=== PATIENT | female | born 1935 | race Caucasian/White ===

== ENCOUNTER 2017-09-04 17:16 | Inpatient (IN) | payer OTHER, SELFPAY ==
[2017-09-04] VITALS (9 sets, daily range): BP systolic 103–159; BP diastolic 52–74
[~2017-09-04] VITALS: Ht 162.6 cm; Wt 81.7 kg
--- NOTE | ~2017-09-04 | EKG ---
[address] [employer] [place] [address] ELECTROCARDIOGRAM REPORT Name: SEAN RANDALL Room #: 351- ADM IN M.R.#: [id number] Admission: 09/04/17 Attend Phys: Erick Kelly MD Discharge: Date of : 36 Report #: [id number] THIS REPORT FOR: //name// [facility] Test Date: 2017-09-08 Test Time: 22:22:02 Pat Name: SEAN RANDALL Department: Room: 351 Gender: F Cyanide Pot Tender: [id number] : 1935 Requested By: Xiomara Shin Order Number: [id number] MD: Parth Wilder Measurements Intervals [place] Rate: 146 P: 122 KS: 24 QRS: 51 QRSD: 89 T: 237 QT: 261 QTc: 407 Interpretive Statements Atrial fibrillation with a rapid ventricular response Diffuse ST and T wave abnormality Compared to ECG 09/04/2017 18:19:35 Atrial fibrillation has replaced sinus rhythm Electronically Signed On 09-10-2017 13:10:12 CDT by Parth Wilder [email or web address] <ELECTRONICALLY SIGNED> By: Parth Wilder MD, [facility] 09/10/17 1310 21 21 Parth Wilder MD, [facility] /EPI
--- NOTE | ~2017-09-04 | O ---
[facility] [place] [address] OPERATIVE REPORT Name: SEAN RANDALL Room #: 351- ADM IN M.R.#: [id number] Admission: 09/04/17 Attend Phys: Erikc Kelly MD Discharge: Date of : 36 Report #: [id number] THIS REPORT FOR: //name// CC: Ricardo Ray DATE OF SERVICE: 09/06/2017 PREOPERATIVE DIAGNOSES: 1. Ischemic left colon. 2. Obesity. 3. Coronary artery disease status post myocardial infarction and stenting. 4. Hypercholesterolemia. 5. Tobaccoism. POSTOPERATIVE DIAGNOSES: 1. Ischemic left colon. 2. Obesity. 3. Coronary artery disease status post myocardial infarction and stenting. 4. Hypercholesterolemia. 5. Tobaccoism. PROCEDURES PERFORMED: 1. Exploratory laparotomy. 2. Extensive lysis of adhesions. 3. Left hemicolectomy with low anterior resection and end mid-transverse colostomy in the left upper quadrant. 4. Placement of a topical wound VAC (Prevena) device. SURGEON: Ricardo Tapia M.D. GLASS BLOWING INSTRUCTOR: Kvng Braxton M.D. ANESTHESIA: General endotracheal anesthesia. ESTIMATED BLOOD LOSS: Minimal (less than 20 mL). COMPLICATIONS: None appreciated. SPECIMENS: Left colon to pathology with a suture marking distal. INDICATIONS: The patient is an 81-year-old obese female with a longstanding history of atherosclerotic disease including coronary artery disease status post prior PA with stenting as well as a greater than 50% JUAN MIGUEL stenosis that has failed intervention in the past. The patient has had multiple [facility] [address] [place] [address] OPERATIVE REPORT Name: SEAN RANDALL Room #: 351-P ADM IN M.R.#: [id number] Admission: 09/04/17 Attend Phys: Erick Kelly MD Discharge: Date of : 36 Report #: [id number] bouts of ischemic left colitis and most recently was admitted 2 days ago with severe sudden onset recurrent ischemic colitis where a flexible sigmoidoscopy showed overt necrotic mucosa from 20-50 cm of the left colon. Thankfully, the patient responded to aggressive fluid resuscitation and antibiotics and we were able to bowel prep the patient and proceed with the above-mentioned procedure today. There was questionable ischemia at the distal transection site, which was as low as we could feasibly go due to marked adhesions in the pelvis of the rectum to the posterior aspect of the uterus and as we did not have adequate tissue, we were unable to perform the low coloproctostomy anastomosis. DESCRIPTION OF PROCEDURE: After explaining the risks, benefits and alternatives of the procedure with the patient in detail in the preoperative holding area and obtaining written consent, the patient was brought to the operating room and placed supine on the operating room table. After conducting a thorough timeout procedure verifying correct patient and procedure, the patient was given general endotracheal anesthesia. Once adequate anesthesia was obtained, her SCDs were hooked up to pneumatic compression device. She was given a preoperative dose of antibiotics in line with the SCIP protocol. The patient's abdomen was prepped and draped in standard surgical sterile fashion. #10 bladed scalpel was used to create a longitudinal midline incision from subxyphoid location to the suprapubic location, carried to the right of the patient's umbilicus. Electrocautery was used to carry this down through skin and subcutaneous tissues to ensure hemostasis. Once I arrived upon the level of the fascia, this was scored longitudinally and a finger was placed in the abdomen to facilitate opening the fascia in a controlled setting without injury to the underlying structures from electrocautery burn. Once we had the entirety of the fascia opened, there was approximately 1 liter of reactive ascites that was slightly turbid in nature. This was suctioned out after obtaining culture swabs times 2 for microbiologic analysis. Once all the fluid had been evacuated, we turned our attention to dissection. The patient's left colon was thickened, hyperemic and obviously diseased. There were marked adhesions due to the multiple recurrent inflammatory processes. The patient was placed in Trendelenburg position with the left side elevated and we were able to sweep the small bowel into the upper abdomen. We now mobilized the left colon along the white line of Toldt using electrocautery to score the avascular plane. Care was taken to identify the left ureter, which was preserved and uninjured throughout. As we scored low in the pelvis, the rectum itself was thickened to approximately 3 cm inferior to the rectosigmoid juncture. A window was made through the mesorectum using blunt dissection and the contour stapler with a blue load was used to transect the rectum at this juncture. There were marked adhesions of the anterior aspect of the rectum to the posterior aspect of the uterus low in the pelvis and these were unable to be taken down as they were very firm and indurated due to the acute inflammatory process of the ischemic colitis. The colon itself was now elevated, and we took down the mesentery with the EnSeal X1 advanced energy device moving from the distal aspect proximally. We took down the splenic flexure to mobilize the entire left colon and identified the middle [facility] [address] [place] [address] OPERATIVE REPORT Name: SEAN RANDALL Room #: 351-P [facility] IN M.R.#: [id number] Admission: 09/04/17 Attend Phys: Erick Kelly MD Discharge: Date of : 36 Report #: [id number] colic artery. We went just to the patient's left side of the middle colic artery and made a window in the mesentery with electrocautery and transected the colon at this juncture with a blue load 75 mm linear stapler. This allowed us to remove the entire left colon and placed it on a Andrea stand on the back table where we proceeded to open the colon along the antimesenteric aspect with Metzenbaum scissors. This showed overt mucosal necrosis from approximately 3 cm distal to our proximal transection site all the way down to the distal transection site. There was one spot on the distal aspect that had a firm scar externally and frozen section was obtained from pathology intraoperatively showing no evidence of malignancy. As we had no healthy rectal stump at this juncture, we were unable to perform the low coloproctostomy anastomosis. We therefore selected an appropriate site for colostomy placement in the left upper quadrant. The skin was grasped with a Rajendra clamp and a skin defect was made with #10 bladed scalpel. We dissected with electrocautery down through fascia where a tonsil clamp was used to penetrate intraabdominally and the tract was dilated to 2 fingerbreadths. A Kinston clamp was placed through this tract and the staple line of the distal transverse colon was grasped and pulled through. Orientation was preserved to ensure no twisting. The abdomen was copiously irrigated and the irrigant ran clear throughout. We did place a 19-Zambian round Yeyo-Garza drain in the low pelvis emanating from the right lower abdomen where it was anchored to the skin using 2-0 nylon in standard fashion. The drain ran low in the pelvis and up the left pericolic gutter. We now closed the midline fascial wound using looped #1 PDS suture in standard running fashion using two separate sutures from inferior to superior and superior to inferior where the sutures were met. They were tied together at the midline. The skin wound was irrigated and skin was closed with saman. Prevena was then applied to the midline fascial wound. We then removed the staple line of the transverse colon and proceeded to mature the colostomy in standard Robyn fashion using 3-0 Vicryl at the 12, 3, 6, and 9 o'clock positions to imbricate the colon slightly. We then anchored the mucocutaneous junction and the remaining 4 quadrants using short runs of 3-0 Vicryl. Digital finger intubation of the colostomy showed it to be patent to a subfascial level. A sterile ostomy appliance was then applied. At the end of the procedure, all instrument, needle and sponge counts were correct. The patient tolerated the procedure without incident, was awakened in the operating room and transitioned to the recovery room in stable condition with no apparent complications. <ELECTRONICALLY SIGNED> By: Ricardo Tapia MD, FACS 09/10/17 0745 1051 1231 Ricardo Tapia MD, FACS /nt
--- NOTE | ~2017-09-04 | S ---
[facility] [place] [address] SURGICAL PATH RPT PROCEDURE Name: SEAN RANDALL Room #: 351-P ADM IN M.R.#: [id number] Admission: 09/04/17 Date of : 37 Discharge: Report #: [id number] Path Case #: [id number] PATHOLOGY REPORT COLLECTION DATE: 09/06/2017 RECEIVED DATE: 09/06/2017 SUBMITTING PHYS: Dr. Ricardo Tapia OTHER PHYS: Dr. Suman Kelly M.D. SPECIMEN(S) RECEIVED: A.L colon suture alexandra distal * * * * * * * * * * * * FINAL DIAGNOSIS: Large intestine, left colon suture alexandra distal, colectomy: - Ischemic colitis. - Margins of resection viable and unremarkable. - Negative for dysplasia or malignancy. (IUV:lukasz; 09/09/2017) PATHOLOGIST: Mary Laguna M.D. REPORT ELECTRONICALLY SIGNED BY: Mary Laguna M.D. DATE/TIME: 09/09/2017 14:48 * * * * * * * * * * * * GROSS PATHOLOGY: The specimen received fresh from the OR labeled "Sean Randall and left colon - suture alexandra distal". It consists of a previously opened segment of large bowel with attached yellow lobular pericolonic fatty tissue. The specimen measures 42 cm in length x 3.5 cm in average diameter. It was previously opened in the OR along the antimesenteric border revealing a mucosal surface that is coreas-brown and folded with numerous areas of dark discoloration and friable mucosa. The surgical margins appear free of changes. Approximately 3 cm from the distal resection margin is a small indurated area along the serosal surface corresponding to a slightly firm mucosa area. A technical support representative section of this area is submitted for one frozen section. The frozen section is then submitted as A1. The specimen is fixed in formalin. (CLW:kaylin; 09/09/2017) Received fresh for intraoperative consultation, and later placed in formalin, labeled "Sean Randall, left colon-suture alexandra distal" is an oriented segment of large bowel with an internal circumference that ranges from 3.8-7.5 cm. The serosa is pink-coreas and smooth with a [facility] [address] [place] [address] SURGICAL PATH RPT PROCEDURE Name: SEAN RANDALL Room #: [facility]- ADM IN M.R.#: [id number] Admission: 09/04/17 Date of : 37 Discharge: Report #: [id number] Path Case #: [id number] moderate amount of mesenteric fat present. Approximately 50% of the mucosal surface is patchy coreas-green and discolored, with prominent mucosal folding. This discolored area measures 32.5 cm in length and 3.2-6.5 cm in width. The discolored area measures up to the proximal margin and 3.0 cm to the distal margin. A slightly puckered area is identified near the distal aspect, which is contiguous with the discoloration, and measures 2.0 x 0.8 cm. The serosa deep to this area is inked blue, at the puckered area (this represents the section submitted for frozen section as FSA1). The uninvolved mucosa is pink-coreas with edematous folding. No polyps, diverticula, or masses are grossly identified. The muscle wall of the bowel ranges from 0.3-0.7 cm in width. No lymph nodes are grossly identified. Network Operations Center Engineer sections of the specimen are submitted as follows: A1 frozen section remnant A2 proximal margin A3 distal margin A4 additional sections of area surrounding section taken for frozen A5-A6 areas of coreas-green discoloration and adjacent uninvolved mucosa ([facility]; 09/08/2017) FROZEN SECTION DIAGNOSIS: (Claudette Payne M.D.): FSA1. "Left colon": - No invasive carcinoma seen at induration. The case was discussed with Dr. Tapia in the OR and a written report is placed in the patient's chart. Testing performed by [facility] at [facility] [address] [place] [address] CLINICAL HISTORY: Ischemic colitis. INITIAL CPT CODE(S): A; 12375, 00309 Professional services performed by [facility] at [facility] [address] [place] [address] Technical services performed by [facility] at [address] [place] [address], [address], [place] [address]. [facility] [address] [address] [place] [address] SURGICAL PATH RPT PROCEDURE Name: SEAN RANDALL Room #: 351-P ADM IN M.R.#: [id number] Admission: 09/04/17 Date of : 37 Discharge: Report #: [id number] Path Case #: [id number] PHONE: [phone] DIRECTOR: Gerardo Cordova M.D. * * * END OF REPORT * * *
--- NOTE | ~2017-09-04 | P ---
[facility] [place] [address] PROCEDURE REPORT Name: SEAN RANDALL Room #: [facility]-P [facility] IN M.R.#: [id number] Admission: 09/04/17 Attend Phys: Erick Kelly MD Discharge: Date of : 36 Report #: [id number] THIS REPORT FOR: //name// CC: Inpatient Chart Ricardo Ray MD DATE OF SERVICE: 09/05/2017 The following is a flexible sigmoidoscopy. She is a patient of Dr. Suman Ray and Dr. Kelly. INDICATION FOR PROCEDURE: The patient presented with abdominal pain followed by hematochezia. She has a history of ischemic colitis of the sigmoid colon. She is complaining of right lower quadrant pain primarily that may be sigmoid. Informed consent for this procedure was obtained prior to the administration of any medication. The risks of the procedure which include bleeding, perforation, infection, complications of sedation and the possibility I could miss something have been explained to the patient and her family and the patient has indicated her consent by signing. Propofol was slowly titrated before and during this procedure for patient comfort by the Anesthesia service. A digital rectal exam was performed and was normal. No abnormalities were palpated. Then, the Fujinon colonoscope was introduced through the anal sphincter and advanced very cautiously and slowly through the rectum, sigmoid colon, descending colon and splenic flexure into the transverse colon. Findings are noted on withdrawal of the scope. The transverse colonic mucosa appears normal as far as I can see. In the splenic flexure, we see the beginning of some mucosal ulcerations and erythema and edema. At 50 cm in the proximal descending colon, there is an abrupt change to severe black colored and littlejohn colored mucosa indicating severe ischemia of this area. There is a lot of edema and deep ulcerations throughout the colon, in the descending colon and the sigmoid colon and then this abruptly ends at 20 cm in the distal sigmoid colon. I suspect this is all severe ischemic colitis. The rectum appeared normal. I did not try to retroflex in the rectum because I did not want to put any type of pressure whatsoever on the sigmoid colon. The scope was withdrawn. The patient went to the recovery area in stable condition. She tolerated the procedure well. IMPRESSION: Severe ischemic colitis extending from 20 cm up to 50 cm in the [address] [address] PROCEDURE REPORT Name: SEAN RANDALL Room #: 246-P [facility] IN M.R.#: [id number] Admission: 09/04/17 Attend Phys: Erick Kelly MD Discharge: Date of : 36 Report #: [id number] proximal descending colon. The mucosa is black in color and littlejohn in color in other areas. Sometimes the mucosal lumen is black on 1 half side and the other side is a normal pink color consistent with ischemia. My recommendations were to continue the IV antibiotics, was started on clear liquids very cautiously. I think she needs to stay in the hospital, but not necessarily in the ICU. She will need to have further evaluation by surgery for possible resection of this ascitic colon as previous attempts at stenting her inferior mesenteric artery were unsuccessful. Thank you very much once again for allowing me to participate in her care, Dr. Ray and Dr. Kelly and Dr. Tapia. <ELECTRONICALLY SIGNED> By: Elvira Ambrocio DO 09/05/17 2109 1343 1912 Elvira Ambrocio DO /nt
--- NOTE | ~2017-09-04 | EKG ---
[address] [address] [facility] [place] [address] ELECTROCARDIOGRAM REPORT Name: SEAN RANDALL Room #: 246-P ADM IN M.R.#: [id number] Admission: 09/04/17 Attend Phys: Eugene Pinto MD Discharge: Date of : 36 Report #: [id number] THIS REPORT FOR: //name// [facility] ED Test Date: 2017-09-04 Test Time: 18:19:35 Pat Name: SEAN RANDALL Department: Room: 246 Gender: F Strickler Attendant: Rubio GONZALEZ : 1935 Requested By: Ricardo Ferrera Order Number: [id number] MD: Parth Wilder Measurements Intervals [place] Rate: 82 P: 73 [place]: 154 QRS: 62 QRSD: 99 T: 75 QT: 454 QTc: 531 Interpretive Statements Sinus rhythm Nonspecific ST segment abnormality Prolonged QT interval Compared to ECG 01/22/2010 09:39:13 Sinus bradycardia no longer present ST and T wave abnormality is less pronounced Electronically Signed On 09-05-2017 7:41:17 MASTER BLACK [employer]T by Parth Wilder [email or web address] <ELECTRONICALLY SIGNED> By: Parth Wilder MD, [facility] 09/05/17 0741 1819 1819 Parth Wilder MD, [facility] /EPI
--- NOTE | ~2017-09-04 | 2DMMODE ---
[facility] [address] [employer] [address] [address] 2 D/M-MODE ECHOCARDIOGRAM Name: SEAN RANDALL Room #: 351-P ADM IN M.R.#: [id number] Admission: 09/04/17 Attend Phys: Erick Kelly MD Discharge: Date of : 37 Date of Service: 09/06/17 0850 Report #: [id number] THIS REPORT FOR: //name// APPROVED REPORT Study performed: 09/06/2017 08:05:17 EXAM: Comprehensive 2D, Doppler, and color-flow Echocardiogram Patient Location: Bedside Room #: [facility] Status: routine BSA: 1.87 HR: 80 bpm BP: 146/54 mmHg Rhythm: NSR Other Information Study Quality: Adequate Indications Elevated troponin, Pre-Op. Hx: CAD, stents, HTN, HLP, tobacco abuse 2D Dimensions RVDd: 31.80 mm LVEF(%): 60.63 (>50%) IVSd: 11.23 (7-11mm) LVOT Diam: 21.67 (18-24mm) LVDd: 47.92 mm PWd: 11.31 (7-11mm) Ascending Ao: 35.91 (22-36mm) LVDs: 32.39 (25-40mm) Aortic Root: 36.00 mm Francisco's LVEF: 60.63 % Volumes Left Atrial Volume (Systole) Single Plane 4CH: 48.63 mL Single Plane 2CH: 46.90 mL LA ESV Index: 28.00 mL/m2 Aortic Valve AoV Peak Emir.: 1.75 m/s AO Peak Gr.: 12.18 mmHg LVOT Max P.01 mmHg LVOT Max V: 1.32 m/s SHARI Vmax: 2.80 cm2 Mitral Valve E/A Ratio: 0.9 [facility] [employer] [place] [address] 2 D/M-MODE ECHOCARDIOGRAM Name: SEAN RANDALL Room #: 351-P [facility] IN M.R.#: [id number] Admission: 09/04/17 Attend Phys: Erick Kelly MD Discharge: Date of : 36 Date of Service: 09/06/17 0850 Report #: [id number] MV Decel. Time: 140.73 ms MV E Max Emir.: 1.22 m/s MV A Emir.: 1.36 m/s MV PHT: 40.81 ms IVRT: 69.20 ms Pulmonary Valve PV Peak Emir.: 1.03 m/s PV Peak Gr.: 4.20 mmHg Pulmonary Vein P Vein S: 0.85 m/s P Vein A: 0.34 m/s P Vein D: 0.42 m/s P Vein S/D Ratio: 2.02 Tricuspid Valve TR Peak Emir.: 3.21 m/s RAP Estimate: 5.00 mmHg TR Peak Gr.: 41.17 mmHg PA Pressure: 46.00 mmHg Left Ventricle The left ventricle is normal size. There is normal LV segmental wall motion. There is normal left ventricular wall thickness. Left ventricular systolic function is normal. LVEF is 55%. Mild diastolic dysfunction is present (impaired relaxation pattern). Right Ventricle The right ventricle is normal size. The right ventricular systolic function is normal. Atria The left atrium size is normal. The right atrium size is normal. Aortic Valve The aortic valve is mildly sclerotic. No aortic regurgitation is present. There is no aortic valvular stenosis. Mitral Valve Mild mitral annular calcification. Trace mitral regurgitation. Tricuspid Valve The tricuspid valve is normal in structure. Mild tricuspid regurgitation. Moderate pulmonary hypertension with an estimated PAP of 45mmHg. [address] [address] 2 D/M-MODE ECHOCARDIOGRAM Name: SEAN RANDALL Room #: 351-P [facility] IN M.R.#: [id number] Admission: 09/04/17 Attend Phys: Erick Kelly MD Discharge: Date of : 37 Date of Service: 09/06/17 0850 Report #: [id number] Pulmonic Valve Pulmonic valve is not well visualized. Great Vessels The aortic root is normal in size. The ascending aorta is normal in size. IVC is normal in size and collapses >50% with inspiration. Pericardium There is no pericardial effusion. <Conclusion> Left ventricular systolic function is normal. There is normal LV segmental wall motion. LVEF is 55%. Grade I diastolic dysfunction The aortic valve is mildly sclerotic. No aortic regurgitation or stenosis Mild mitral annular calcification. Trace mitral regurgitation. Moderate pulmonary hypertension with an estimated pulmonary artery pressure of 45mmHg. There is no pericardial effusion. <ELECTRONICALLY SIGNED> By: Parth Wilder MD, FACC 09/06/1750 9 Parth Wilder MD, FACC /INF
--- NOTE | ~2017-09-04 | EKG ---
[address] [address] ELECTROCARDIOGRAM REPORT Name: SEAN ARNDALL Room #: 351- ADM IN M.R.#: [id number] Admission: 09/04/17 Attend Phys: Erick Kelly MD Discharge: Date of : 37 Report #: [id number] THIS REPORT FOR: //name// [facility] Test Date: 2017-09-08 Test Time: 22:40:24 Pat Name: SEAN RANDALL Department: Room: 351 Gender: F Concrete Boom Operator: [id number] : 1935 Requested By: Erick Kelly Order Number: [id number] MD: Parth Wilder Measurements Intervals [place] Rate: 130 P: LA: QRS: 52 QRSD: 98 T: 230 QT: 264 QTc: 388 Interpretive Statements Atrial fibrillation Low voltage, extremity leads Repolarization abnormality, prob rate related Compared to ECG 09/04/2017 18:19:35 No significant change was found Electronically Signed On 09-10-2017 16:31:08 CDT by Parth Wilder [email or web address] <ELECTRONICALLY SIGNED> By: Parth Wilder MD, [facility] 09/10/17 1631 39 Parth Wilder MD, [facility] /EPI
--- NOTE | ~2017-09-04 | HC ---
[facility] [place] [address] CONSULTATION Name: SEAN RANDALL Room #: 351-P [facility] IN M.R.#: [id number] Admission: 09/04/17 Attend Phys: Erick Kelly MD Discharge: Date of : 36 Report #: [id number] THIS REPORT FOR: //name// CC: Ricardo Kelly Suman Cory DATE OF SERVICE: 09/04/2017 REFERRING PROVIDER: Eugene Pinto MD REASON FOR CONSULT: Abdominal pain. HISTORY OF PRESENT ILLNESS: The patient is an 81-year-old female who presented with significant abdominal pain, constipation, and a known history of ischemic colitis. Her constipation resolved and she had onset of nausea and diarrhea with horrible abdominal pain and vomiting. The patient had a known history of prior bouts of ischemic colitis for which she had a failed attempt at JUAN MIGUEL stenting. The patient was evaluated with laboratories and a CT scan of the abdomen and pelvis. The patient's labs showed a leukocytosis with a white blood cell count of 15.8 thousand, her creatinine was elevated at 1.7, her lactate was markedly elevated to greater than [address] scan showed marked thickening of the left colon with stranding suggesting ischemia. The patient was tachycardic and slightly hypotensive and as such, she has been admitted to the intensive care unit and I am asked to evaluate from a surgical standpoint. PAST MEDICAL HISTORY: Hypertriglyceridemia, prior cholecystectomy and appendectomy. She has had a TIA and hypercholesterolemia. She has had hypertension. She also has coronary artery disease, status post stenting with a prior NV. 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 HOME MEDICATIONS: Amlodipine, aspirin, Plavix, oxybutynin, pravastatin, Imdur, Synthroid, and Ranexa. ALLERGIES: To IV DYE and TETANUS TOXOID. SOCIAL HISTORY: The patient continues to smoke 1 pack per day and has done so for 60 years, does not utilize illicit drugs and does not have any history of alcohol use. FAMILY HISTORY: Reviewed and noncontributory. REVIEW OF SYSTEMS: GENERAL: The patient denies nocturnal fevers or chills. HEENT: No change in vision or change in hearing. [address] [address] CONSULTATION Name: SEAN RANDALL Room #: 351-P [facility] IN M.R.#: [id number] Admission: 09/04/17 Attend Phys: Erick Kelly MD Discharge: Date of : 36 Report #: [id number] NECK: No swelling or difficulty swallowing. HEART: No chest pain or palpitations. LUNGS: No cough or shortness of breath. ABDOMEN: Abdominal pain, nausea, vomiting, and diarrhea. GENITOURINARY: No dysuria or hematuria. ENDOCRINE: No polyuria or polydipsia. HEMATOLOGIC: No history of bleeding or easy bruising. EXTREMITIES: No history weakness or limited range of motion. NEUROLOGIC: No history of syncope or near syncopal episodes. SKIN AND INTEGUMENT: No history of abnormal lesions or moles. PSYCHIATRIC: No history of anxiety or depression. PHYSICAL EXAMINATION: VITAL SIGNS: Temperature 36.6, pulse 112, respirations 14, and blood pressure currently is 98/46. GENERAL: She is alert and in moderate distress with abdominal pain. HEENT: Normocephalic, atraumatic. Pupils are equal, round, and reactive to light. NECK: Supple, without lymphadenopathy. Trachea midline. HEART: Tachycardic, but regular rhythm. LUNGS: Clear to auscultation bilaterally. ABDOMEN: Soft, moderately distended with significant tenderness to palpation in the left flank. She does have positive guarding, but no rebound at this time. GENITOURINARY: Normal external female genitalia. EXTREMITIES: No clubbing, cyanosis, or edema. NEUROLOGIC: Cranial nerves 2-12 are grossly intact. PSYCHIATRIC: Normal mood and affect. SKIN AND INTEGUMENT: No abnormal lesions or moles. LABORATORY AND X-RAY DATA: CBC shows white blood cell count of 15.8 thousand, hemoglobin 17.5, platelets 188,000. Creatinine 1.7. Lactic acid was 5.5. CT scan of the abdomen and pelvis as per HPI shows left colonic thickening with stranding suggesting ischemia. 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 The patient also has a known history of atherosclerotic heart disease. At this time, the patient appears clinically dehydrated and in early sepsis and is being admitted to the ICU for sepsis protocol. We will start aggressive fluid resuscitation as well as broad-spectrum antibiotics in the form of Zosyn and place a Capellan catheter for adequate monitoring of urine output. My hope would be that she will stabilize with aggressive fluids and antibiotics and we will ask gastroenterology to likely proceed with a flexible sigmoidoscopy to determine the extent of her ischemic colitis. She will undoubtedly necessitate a left hemicolectomy at some point this hospitalization and it would be [address] [place] [address] CONSULTATION Name: SEAN RANDALL Room #: 351-P ADM IN M.R.#: [id number] Admission: 09/04/17 Attend Phys: Erick Kelly MD Discharge: Date of : 36 Report #: [id number] preferable to proceed with this on an urgent basis as opposed to an emergent basis if possible. I did spend greater than 60 minutes discussing all of the above with the patient in great detail at the bedside and she agrees to proceed as outlined, especially since she has no free air, free fluid in the abdomen and is not toxic with overt peritonitis at this time. I will follow the patient closely with serial abdominal exams and repeat laboratories and leave any further recommendations in the patient's chart as appropriate. I sincerely appreciate this consult. <ELECTRONICALLY SIGNED> By: Ricardo Tapia MD, FACS 09/10/17 0745 [id number] [id number] Ricardo Tapia MD, FACS /nt
[~2017-09-04 17:16] MED LIST: ADULT LOW DOSE81 MG PO; AMLODIPINE BESYL5 MG PO; ASPIRIN325 PO; COMBIVENT INH; IMDUR 30 MG TAB30 M1 PO; LEVSIN PO; MELOXICAM7.5 MG PO; OXYBUTYNIN 5 MG5 M1 PO; PLAVIX 75 MG TA75 MG PO; PRAVASTATIN SOD20 MG PO; PRAVASTATIN SOD40 MG PO; PROPRANOLOL 8080 M1 PO; RANEXA500 MG PO; SYNTHROID88 MCG PO; TOPROL XL50 MG PO; ZESTRIL40 MG PO
[2017-09-04 18:08] LABS: ABSOLUTE NEUTROPHILS 14.3 thou/uL (1.4-8.2); BASOPHILS 0.5 % (0.0-2.0); EOSINOPHILS 0.1 % (0.0-3.0); HEMOGLOBIN 17.5 gm/dL (12.0-15.0); LYMPHOCYTES 6.9 % (24.0-44.0); MCHC 33.7 g/dL (28.0-37.0); PLATELET COUNT 188 thou/uL (150-400); POLYS 90.5 % (36.0-66.0); RBC 5.15 mil/uL (4.20-5.00); RDW 14.1 % (10.5-14.5); WBC 15.8 thou/uL (4.0-11.0)
[2017-09-04 18:11] LABS: CALCIUM 10.2 mg/dL (8.5-10.1); CREATININE 1.7 mg/dL (0.6-1.0); POTASSIUM 4.6 mmol/L (3.5-5.1)
[2017-09-04 18:16] LABS: PROTIME 10.4 Seconds (9.3-11.4)
[2017-09-04 18:19] LABS: ALBUMIN 4.5 g/dL (3.4-5.0); TOTAL BILIRUBIN 1.2 mg/dL (<0.1-1.0); TOTAL PROTEIN 8.1 g/dL (6.4-8.2)
[2017-09-04 18:55] LABS: URINE BLOOD NEGATIVE (Negative); URINE GLUCOSE-RANDOM* NEGATIVE (Negative); URINE KETONES 1+ (Negative); URINE LEUKOCYTES-REFLEX NEGATIVE (Negative); URINE PROTEIN (DIPSTICK) 2+ (Negative); URINE SPECIFIC GRAVITY 1.025 (1.005-1.035); URINE UROBILINOGEN 0.2 E.U./dl (0.2-1.0)
[2017-09-04 18:57] LABS: URINE BILIRUBIN NEGATIVE (Negative); URINE COLOR BROWNISH; URINE NITRITE-REFLEX POSITIVE (Negative)
[2017-09-04 18:58] LABS: URINE CLARITY SL HAZY
[2017-09-04 19:05] LABS: CASTS None Seen /LPF (None Seen); SQUAMOUS 0-3 Few /LPF (0-3); URINE RBC None Seen /HPF (0-2); URINE WBC-REFLEX 0-5 Rare /HPF (0-5)
[2017-09-04 19:06] LABS: AMORPHOUS URATES Moderate /LPF (None Seen)
[2017-09-05] VITALS (29 sets, daily range): BP systolic 104–168; BP diastolic 43–134
[2017-09-05 00:41] LABS: HEMOGLOBIN 14.7 gm/dL (12.0-15.0)
[2017-09-05 06:12] LABS: HEMATOCRIT 41.5 % (37.0-47.0); HEMOGLOBIN 14.2 gm/dL (12.0-15.0); MCH 34.1 pg (26.0-34.0); MCHC 34.3 g/dL (28.0-37.0); MCV 99.6 fL (80.0-100.0); RBC 4.17 mil/uL (4.20-5.00); RDW 13.7 % (10.5-14.5); WBC 9.3 thou/uL (4.0-11.0)
[2017-09-05 06:26] LABS: ALBUMIN 2.9 g/dL (3.4-5.0); CREATININE 1.4 mg/dL (0.6-1.0); POTASSIUM 4.3 mmol/L (3.5-5.1); TOTAL BILIRUBIN 0.4 mg/dL (<0.1-1.0); TOTAL PROTEIN 5.7 g/dL (6.4-8.2)
[2017-09-05 06:30] LABS: CALCIUM 7.5 mg/dL (8.5-10.1)
[2017-09-05 12:48] LABS: HEMATOCRIT 39.2 % (37.0-47.0); HEMOGLOBIN 13.4 gm/dL (12.0-15.0)
[2017-09-05 18:17] LABS: HEMATOCRIT 37.7 % (37.0-47.0); HEMOGLOBIN 12.7 gm/dL (12.0-15.0)
[2017-09-05 20:39] LABS: CALCIUM 7.5 mg/dL (8.5-10.1); CREATININE 1.1 mg/dL (0.6-1.0); MAGNESIUM 1.8 mg/dL (1.8-2.4); PHOSPHORUS 2.5 mg/dL (2.5-4.9); POTASSIUM 3.4 mmol/L (3.5-5.1)
[2017-09-06] VITALS (11 sets, daily range): BP systolic 123–173; BP diastolic 40–146
[2017-09-06 00:28] LABS: HEMATOCRIT 33.9 % (37.0-47.0); HEMOGLOBIN 11.6 gm/dL (12.0-15.0)
[2017-09-06 01:16] LABS: % SATURATION 6 % (20-39); IRON 9 ug/dL (50-170); TIBC 143 ug/dL (250-450)
[2017-09-06 01:48] LABS: FOLIC ACID 11.7 ng/mL (8.6-58.9)
[2017-09-06 06:48] LABS: ABSOLUTE NEUTROPHILS 8.6 thou/uL (1.4-8.2); HEMATOCRIT 35.1 % (37.0-47.0); HEMOGLOBIN 12.1 gm/dL (12.0-15.0); MCH 34.6 pg (26.0-34.0); MCHC 34.4 g/dL (28.0-37.0); MCV 100.6 fL (80.0-100.0); MONOCYTES 6.3 % (1.0-8.0); PLATELET COUNT 99 thou/uL (150-400); POLYS 85.7 % (36.0-66.0); RBC 3.49 mil/uL (4.20-5.00); RDW 14.2 % (10.5-14.5)
[2017-09-06 07:16] LABS: ALBUMIN 2.5 g/dL (3.4-5.0); CALCIUM 7.3 mg/dL (8.5-10.1); POTASSIUM 3.1 mmol/L (3.5-5.1); TOTAL BILIRUBIN 0.5 mg/dL (<0.1-1.0); TOTAL PROTEIN 4.8 g/dL (6.4-8.2)
[2017-09-07 00:26] LABS: HEMATOCRIT 37.1 % (37.0-47.0); HEMOGLOBIN 12.4 gm/dL (12.0-15.0)
[2017-09-07 03:20] VITALS: BP 152/58
[2017-09-07 06:00] VITALS: BP 165/67
[2017-09-07 06:53] LABS: HEMATOCRIT 35.7 % (37.0-47.0); HEMOGLOBIN 12.2 gm/dL (12.0-15.0); MCH 34.2 pg (26.0-34.0); MCHC 34.1 g/dL (28.0-37.0); MCV 100.4 fL (80.0-100.0); PLATELET COUNT 107 thou/uL (150-400); RBC 3.55 mil/uL (4.20-5.00); RDW 14.5 % (10.5-14.5); WBC 9.5 thou/uL (4.0-11.0)
[2017-09-07 07:01] LABS: CREATININE 1.3 mg/dL (0.6-1.0); POTASSIUM 3.2 mmol/L (3.5-5.1)
[2017-09-07 07:42] LABS: ABSOLUTE NEUTROPHILS 8.4 thou/uL (1.4-8.2)
[2017-09-07 11:36] VITALS: BP 166/61
[2017-09-07 16:19] VITALS: BP 150/69
[2017-09-07 19:40] VITALS: BP 158/69
[2017-09-08] VITALS (11 sets, daily range): BP systolic 97–180; BP diastolic 48–81
[2017-09-08 04:50] LABS: HEMATOCRIT 31.1 % (37.0-47.0); HEMOGLOBIN 10.4 gm/dL (12.0-15.0); MCH 33.5 pg (26.0-34.0); MCHC 33.5 g/dL (28.0-37.0); MCV 100.2 fL (80.0-100.0); PLATELET COUNT 108 thou/uL (150-400); RDW 14.7 % (10.5-14.5); WBC 11.2 thou/uL (4.0-11.0)
[2017-09-08 04:57] LABS: CALCIUM 7.8 mg/dL (8.5-10.1); CREATININE 1.2 mg/dL (0.6-1.0); POTASSIUM 3.4 mmol/L (3.5-5.1)
[2017-09-08 07:33] LABS: ABSOLUTE NEUTROPHILS 9.6 thou/uL (1.4-8.2); METAMYELOCYTES 1 %; MYELOCYTES 1 %; PLATELET ESTIMATE DECREASED; TOXIC GRANULATION SLIGHT
[2017-09-08 16:42] LABS: HEMATOCRIT 33.3 % (37.0-47.0); HEMOGLOBIN 11.2 gm/dL (12.0-15.0); MCH 33.5 pg (26.0-34.0); MCHC 33.6 g/dL (28.0-37.0); MCV 99.5 fL (80.0-100.0); PLATELET COUNT 116 thou/uL (150-400); RBC 3.35 mil/uL (4.20-5.00); RDW 14.7 % (10.5-14.5); WBC 12.5 thou/uL (4.0-11.0)
[2017-09-08 16:53] LABS: CALCIUM 7.9 mg/dL (8.5-10.1); CREATININE 1.1 mg/dL (0.6-1.0); POTASSIUM 3.5 mmol/L (3.5-5.1)
[2017-09-08 19:08] LABS: URINE BILIRUBIN NEGATIVE (Negative); URINE BLOOD NEGATIVE (Negative); URINE CLARITY CLEAR; URINE COLOR YELLOW; URINE GLUCOSE-RANDOM* NEGATIVE (Negative); URINE KETONES NEGATIVE (Negative); URINE LEUKOCYTES-REFLEX NEGATIVE (Negative); URINE NITRITE-REFLEX NEGATIVE (Negative); URINE PROTEIN (DIPSTICK) NEGATIVE (Negative); URINE SPECIFIC GRAVITY 1.015 (1.005-1.035); URINE UROBILINOGEN 0.2 E.U./dl (0.2-1.0)
[2017-09-09] VITALS (19 sets, daily range): BP systolic 89–175; BP diastolic 34–97
[2017-09-09 06:00] LABS: HEMATOCRIT 32.2 % (37.0-47.0); HEMOGLOBIN 10.9 gm/dL (12.0-15.0); MCH 33.7 pg (26.0-34.0); MCHC 33.8 g/dL (28.0-37.0); MCV 99.8 fL (80.0-100.0); PLATELET COUNT 124 thou/uL (150-400); RBC 3.23 mil/uL (4.20-5.00); RDW 14.3 % (10.5-14.5); WBC 9.7 thou/uL (4.0-11.0)
[2017-09-09 06:24] LABS: CALCIUM 7.9 mg/dL (8.5-10.1); CREATININE 1.2 mg/dL (0.6-1.0); POTASSIUM 3.1 mmol/L (3.5-5.1)
[2017-09-09 07:28] LABS: ABSOLUTE NEUTROPHILS 8.1 thou/uL (1.4-8.2); METAMYELOCYTES 1 %
[2017-09-10 03:43] VITALS: BP 155/74
[2017-09-10 06:48] LABS: HEMOGLOBIN 10.4 gm/dL (12.0-15.0); MCH 34.1 pg (26.0-34.0); MCHC 34.5 g/dL (28.0-37.0); MCV 98.9 fL (80.0-100.0); PLATELET COUNT 104 thou/uL (150-400); RBC 3.04 mil/uL (4.20-5.00); RDW 14.1 % (10.5-14.5); WBC 8.2 thou/uL (4.0-11.0)
[2017-09-10 07:23] LABS: CALCIUM 7.8 mg/dL (8.5-10.1); CREATININE 1.1 mg/dL (0.6-1.0); MAGNESIUM 1.9 mg/dL (1.8-2.4); POTASSIUM 3.3 mmol/L (3.5-5.1)
[2017-09-10 07:48] VITALS: BP 159/89
[2017-09-10 07:54] LABS: ABSOLUTE NEUTROPHILS 5.2 thou/uL (1.4-8.2); METAMYELOCYTES 8 %; MYELOCYTES 4 %
[2017-09-10 07:55] LABS: ANISOCYTOSIS SLIGHT
[2017-09-10 13:10] VITALS: BP 145/75
[2017-09-10 15:47] VITALS: BP 183/57
[2017-09-10 19:46] VITALS: BP 173/66
[2017-09-10 23:41] VITALS: BP 150/46
[2017-09-11 03:37] VITALS: BP 174/60
[2017-09-11 06:34] LABS: CALCIUM 7.8 mg/dL (8.5-10.1); CREATININE 0.9 mg/dL (0.6-1.0); MAGNESIUM 1.8 mg/dL (1.8-2.4); POTASSIUM 3.1 mmol/L (3.5-5.1); TOTAL BILIRUBIN 0.7 mg/dL (<0.1-1.0)
[2017-09-11 07:14] VITALS: BP 175/75
[2017-09-11] MEDS ORDERED: B-12 DOTS500 MCG PO (12:46)
[2017-09-11 12:49] VITALS: BP 187/68
[2017-09-11 14:55] VITALS: BP 165/82
[2017-09-11 20:30] VITALS: BP 145/58
[2017-09-12] VITALS: BP 142/48
[2017-09-12 04:00] VITALS: BP 131/34
[2017-09-12 05:22] LABS: CALCIUM 7.6 mg/dL (8.5-10.1); CREATININE 0.8 mg/dL (0.6-1.0); MAGNESIUM 1.6 mg/dL (1.8-2.4); POTASSIUM 3.5 mmol/L (3.5-5.1)
[2017-09-12 07:14] VITALS: BP 136/34
[2017-09-12 12:10] VITALS: BP 140/36
[2017-09-12 15:00] VITALS: BP 154/52
[2017-09-12 19:05] VITALS: BP 157/58
[2017-09-13 03:20] VITALS: BP 146/56
[2017-09-13 08:07] VITALS: BP 129/82
[2017-09-13 11:19] VITALS: BP 150/63
[2017-09-13] MEDS ORDERED: PACERONE 200 M200 M1 PO (12:41)
[2017-09-13] MEDS ORDERED: AUGMENTIN 500-1 EACH PO (12:41)
[2017-09-13] MEDS ORDERED: XARELTO15 MG PO (12:41)
[2017-09-13] MEDS ORDERED: COZAAR 50 MG TA50 M1 PO (12:42)
[2017-09-13] MEDS ORDERED: COLACE 100 MG100 MG PO (12:42)
== END 2017-09-13 17:52 | DRG 853 ==
LOC: ER 17:16 → ICU 19:29 → EROBS 19:29 → ICU 21:06 → 3W 09-06 05:43
PROVIDERS: Hospitalist; Internal Medicine; Internal Medicine Gastroenterology; Physician Assistant; Surgery
PROC: 0DJD8ZZ Inspection of Lower Intestinal Tract, Via Natural or Artificial Opening Endoscopic (ICD-10-PCS; principal; 2017-09-05)
PROC: B24BZZ4 Ultrasonography of Heart with Aorta, Transesophageal (ICD-10-PCS; 2017-09-06)
PROC: 0D1L0Z4 Bypass Transverse Colon to Cutaneous, Open Approach (ICD-10-PCS; 2017-09-09)
PROC: 05HY33Z Insertion of Infusion Device into Upper Vein, Percutaneous Approach (ICD-10-PCS; 2017-09-09)
PROC: 0DTG0ZZ Resection of Left Large Intestine, Open Approach (ICD-10-PCS; 2017-09-09)
PROC: 0DNP0ZZ Release Rectum, Open Approach (ICD-10-PCS; 2017-09-09)
DX: A41.9 Sepsis, unspecified organism (principal); J96.91 Respiratory failure, unspecified with hypoxia; E43 Unspecified severe protein-calorie malnutrition; N17.0 Acute kidney failure with tubular necrosis; K55.9 Vascular disorder of intestine, unspecified; E87.2 Acidosis; K63.3 Ulcer of intestine; N39.0 Urinary tract infection, site not specified; I24.8 Other forms of acute ischemic heart disease; E87.0 Hyperosmolality and hypernatremia; E78.1 Pure hyperglyceridemia; I10 Essential (primary) hypertension; I25.10 Atherosclerotic heart disease of native coronary artery without angina pectoris; E05.90 Thyrotoxicosis, unspecified without thyrotoxic crisis or storm; E78.00 Pure hypercholesterolemia, unspecified; K21.9 Gastro-esophageal reflux disease without esophagitis; I34.0 Nonrheumatic mitral (valve) insufficiency; I48.91 Unspecified atrial fibrillation; E87.6 Hypokalemia; Y95 Nosocomial condition; I27.20 Pulmonary hypertension, unspecified; D50.9 Iron deficiency anemia, unspecified; F43.9 Reaction to severe stress, unspecified; E03.9 Hypothyroidism, unspecified; F17.210 Nicotine dependence, cigarettes, uncomplicated; E86.0 Dehydration; E66.9 Obesity, unspecified; Z68.30 Body mass index [BMI] 30.0-30.9, adult; Z79.02 Long term (current) use of antithrombotics/antiplatelets; Z79.82 Long term (current) use of aspirin; Z79.899 Other long term (current) drug therapy; Z95.5 Presence of coronary angioplasty implant and graft; I25.2 Old myocardial infarction; Z90.49 Acquired absence of other specified parts of digestive tract; Z86.73 Personal history of transient ischemic attack (TIA), and cerebral infarction without residual deficits; Z71.6 Tobacco abuse counseling; Z88.7 Allergy status to serum and vaccine; Z91.041 Radiographic dye allergy status; Z83.71 Family history of colonic polyps
CPT/HCPCS: 10078; 10779; 27000; 50010; 50093; 50101; 50290; 50386; 50455; 50953; 51114; 51412; 51712; 56527; 56530; 57092; 62110; 62900; 70005

== ENCOUNTER 2017-09-16 23:39 | Inpatient (IN) | payer OTHER ==
[~2017-09-16] VITALS: Ht 162.6 cm; Wt 76.1 kg
--- NOTE | ~2017-09-16 | EKG ---
[address] [facility] [address] ELECTROCARDIOGRAM REPORT Name: SEAN RANDALL Room #: 204-P ADM IN M.R.#: [id number] Admission: 09/17/17 Attend Phys: Adair Luz MD Discharge: Date of : 36 Report #: [id number] THIS REPORT FOR: //name// [facility] ED Test Date: 2017-09-16 Test Time: 23:48:02 Pat Name: SEAN RANDALL Department: Room: 204 P Gender: F Telehealth Nurse Educator: MZOOK : 1935 Requested By: Adair Luz Order Number: [id number] MD: Parth Wilder Measurements Intervals [place] Rate: 50 P: 36 MI: 164 QRS: -6 QRSD: 103 T: 109 QT: 489 QTc: 446 Interpretive Statements Sinus rhythm Nonspecific T abnrm, anterolateral leads Prolonged QT interval Compared to ECG 09/08/2017 22:40:24 Sinus rhythm has replaced atrial fibrillation Electronically Signed On 09-17-2017 19:19:17 CDT by Parth Wilder [email or web address] <ELECTRONICALLY SIGNED> By: Parth Wilder MD, [facility] 09/17/17 [id number] Parth Wilder MD, [facility] /EPI
[~2017-09-16 23:39] MED LIST changes: +AUGMENTIN 500-1 EACH PO; +B-12 DOTS500 MCG PO; +COLACE 100 MG100 MG PO; +COZAAR 50 MG TA50 M1 PO; +PACERONE 200 M200 M1 PO; +XARELTO15 MG PO
[2017-09-16 23:41] VITALS: BP 162/47
[2017-09-16 23:59] LABS: HEMOGLOBIN 11.6 gm/dL (12.0-15.0); MCH 33.9 pg (26.0-34.0); MCHC 34.1 g/dL (28.0-37.0); MCV 99.3 fL (80.0-100.0); PLATELET COUNT 251 thou/uL (150-400); RBC 3.43 mil/uL (4.20-5.00); RDW 14.9 % (10.5-14.5); WBC 7.1 thou/uL (4.0-11.0)
[2017-09-17] LABS: CALCIUM 8.7 mg/dL (8.5-10.1); CREATININE 1.3 mg/dL (0.6-1.0); POTASSIUM 3.8 mmol/L (3.5-5.1)
[2017-09-17] MEDS ORDERED: BISAC-EVAC10 MG RECTAL (00:03)
[2017-09-17] MEDS ORDERED: MILK OF MA2400 MG/10 PO (00:04)
[2017-09-17] MEDS ORDERED: TYLENOL325 MG PO (00:05)
[2017-09-17 00:09] LABS: TROPONIN-I 0.39 ng/mL (<0.06)
[2017-09-17 00:10] LABS: APTT 38.4 Seconds (24.5-32.8); INR 1.2
[2017-09-17 00:12] LABS: HCO3 23.7 mmol/L (22.0-26.0); PCO2 31.8 mmHg (35.0-45.0); PO2 65.6 mmHg (80.0-100.0); pH 7.491 (7.360-7.450); sO2 94.6 % (92.0-98.0)
[2017-09-17 00:35] LABS: ABSOLUTE NEUTROPHILS 5.2 thou/uL (1.4-8.2); MYELOCYTES 1 %
[2017-09-17 03:00] VITALS: BP 158/48
[2017-09-17 04:20] VITALS: BP 115/72
[2017-09-17 06:25] LABS: CALCIUM 8.6 mg/dL (8.5-10.1); POTASSIUM 4.4 mmol/L (3.5-5.1); TROPONIN-I 0.38 ng/mL (<0.06)
[2017-09-17 08:22] VITALS: BP 153/44
[2017-09-17 11:56] VITALS: BP 145/74
[2017-09-17 15:59] VITALS: BP 151/53
[2017-09-17 19:16] VITALS: BP 153/58
[2017-09-18 00:12] VITALS: BP 158/49
[2017-09-18 04:25] VITALS: BP 138/59
[2017-09-18 07:58] VITALS: BP 161/52
[2017-09-18 11:11] VITALS: BP 149/67
[2017-09-18 15:41] VITALS: BP 103/45
[2017-09-18 20:00] VITALS: BP 126/56
[2017-09-19 04:55] VITALS: BP 155/64
[2017-09-19 07:47] VITALS: BP 147/50
[2017-09-19 11:31] VITALS: BP 122/48
== END 2017-09-19 16:59 | DRG 302 ==
LOC: ER 23:39 → 2N 09-17 02:37 → EROBS 09-17 02:37 → 2N 09-17 03:08
PROVIDERS: Emergency Medicine; Hospitalist
DX: I25.10 Atherosclerotic heart disease of native coronary artery without angina pectoris (principal); N17.1 Acute kidney failure with acute cortical necrosis; K55.9 Vascular disorder of intestine, unspecified; Z95.5 Presence of coronary angioplasty implant and graft; F17.210 Nicotine dependence, cigarettes, uncomplicated; E78.5 Hyperlipidemia, unspecified; I48.0 Paroxysmal atrial fibrillation; G72.9 Myopathy, unspecified; E03.9 Hypothyroidism, unspecified; I10 Essential (primary) hypertension; E78.00 Pure hypercholesterolemia, unspecified; Z86.73 Personal history of transient ischemic attack (TIA), and cerebral infarction without residual deficits; Z88.7 Allergy status to serum and vaccine; Z91.041 Radiographic dye allergy status; Z90.49 Acquired absence of other specified parts of digestive tract; I25.2 Old myocardial infarction; Z93.3 Colostomy status; Z79.82 Long term (current) use of aspirin; Z79.899 Other long term (current) drug therapy; Z98.49 Cataract extraction status, unspecified eye; Z68.28 Body mass index [BMI] 28.0-28.9, adult
CPT/HCPCS: 10081

== ENCOUNTER → 2018-01-30 | Outpatient (CLI) | payer OTHER ==
[~2018-01-30] MED LIST changes: +BISAC-EVAC10 MG RECTAL; +MILK OF MA2400 MG/10 PO; +TYLENOL325 MG PO
--- NOTE | ~2018-01-30 | 2DMMODE ---
[facility] [address] [address] 2 D/M-MODE ECHOCARDIOGRAM Name: TONIAGABRIELLE Room #: REG [facility]#: [id number] Admission: 01/30/18 Attend Phys: Cristian Jensen, Discharge: Date of : 36 Date of Service: 01/30/18 1542 Report #: [id number] THIS REPORT FOR: //name// APPROVED REPORT Study performed: 01/30/2018 14:11:53 EXAM: Comprehensive 2D, Doppler, and color-flow Echocardiogram Patient Location: Out-Patient Room #: Echo lab 2 Status: routine BSA: 1.79 HR: 55 bpm BP: 148/82 mmHg Rhythm: NSR Other Information Study Quality: Adequate Indications Pulmonary Hypertension CAD Hypertension/HDD 2D Dimensions RVDd: 30.90 mm LVEF(%): 52.30 (>50%) IVSd: 13.87 (7-11mm) LVOT Diam: 20.26 (18-24mm) LVDd: 43.12 mm PWd: 12.42 (7-11mm) Ascending Ao: 31.92 (22-36mm) LVDs: 31.65 (25-40mm) Aortic Root: 31.65 mm IVC: 12.00 mm Francisco's LVEF: 52.30 % Volumes Left Atrial Volume (Systole) Single Plane 4CH: 38.57 mL Single Plane 2CH: 37.00 mL LA ESV Index: 23.00 mL/m2 Aortic Valve AoV Peak Emir.: 1.35 m/s AO Peak Gr.: 7.25 mmHg LVOT Max P.55 mmHg LVOT Max V: 0.94 m/s SHARI Vmax: 2.26 cm2 Mitral Valve [facility] [address] [place] [address] 2 D/M-MODE ECHOCARDIOGRAM Name: SEAN RANDALL Room #: [facility]#: [id number] Admission: 01/30/18 Attend Phys: Cristian Jensen, Discharge: Date of : 37 Date of Service: 01/30/18 1542 Report #: [id number] E/A Ratio: 0.6 MV Decel. Time: 320.63 ms MV E Max Emir.: 0.60 m/s MV A Emir.: 1.02 m/s MV PHT: 92.98 ms IVRT: 143.02 ms Pulmonary Valve PV Peak Emir.: 0.94 m/s PV Peak Gr.: 3.62 mmHg Pulmonary Vein P Vein S: 0.66 m/s P Vein A: 0.33 m/s P Vein D: 0.29 m/s P Vein A Dur.: 161.5 msec P Vein S/D Ratio: 2.28 Tricuspid Valve TR Peak Emir.: 2.64 m/s TR Peak Gr.: 27.90 mmHg PA Pressure: 33.00 mmHg Left Ventricle The left ventricle is normal size. There is normal LV segmental wall motion. Mild concentric left ventricular hypertrophy. The left ventricular systolic function is normal. The left ventricular ejection fraction is within the normal range. LVEF is 55-60%. Grade I - abnormal relaxation pattern. Right Ventricle The right ventricle is normal size. The right ventricular systolic function is normal. Atria The left atrium size is normal. The right atrium size is normal. Aortic Valve The aortic valve is normal in structure. No aortic regurgitation is present. There is no aortic valvular stenosis. Mitral Valve The mitral valve is normal in structure. Trace mitral regurgitation. No evidence of mitral valve stenosis. Tricuspid Valve The tricuspid valve is normal in structure. There is trace tricuspid regurgitation. Estimated PAP 33 mmHg. There is mild pulmonary [facility] [address] [place] [address] 2 D/M-MODE ECHOCARDIOGRAM Name: SEAN RANDALL Room #: REG CL [facility]#: [id number] Admission: 01/30/18 Attend Phys: Cristian Jensen, Discharge: Date of : 36 Date of Service: 01/30/18 1542 Report #: [id number] hypertension. Pulmonic Valve The pulmonary valve is normal in structure. There is no pulmonic valvular regurgitation. Great Vessels The aortic root is normal in size. IVC is normal in size and collapses >50% with inspiration. Pericardium There is no pericardial effusion. <Conclusion> The left ventricle is normal size. Mild concentric left ventricular hypertrophy. LVEF is 55-60%. Grade I - abnormal relaxation pattern. The right ventricle is normal size. The left atrium size is normal. The aortic valve is normal in structure. Trace mitral regurgitation. There is trace tricuspid regurgitation. Estimated PAP 33 mmHg. There is mild pulmonary hypertension. The aortic root is normal in size. There is no pericardial effusion. <ELECTRONICALLY SIGNED> By: Cristian Jensen MD, FACC 01/30/18 1542 [id number] Cristian Jensen MD, FACC /INF
== END ==
LOC: CV 10:07
DX: I25.10 Atherosclerotic heart disease of native coronary artery without angina pectoris (principal); I51.7 Cardiomegaly; I27.20 Pulmonary hypertension, unspecified; I48.0 Paroxysmal atrial fibrillation; E78.00 Pure hypercholesterolemia, unspecified

== ENCOUNTER 2019-03-03 16:03 | Inpatient (IN) | payer OTHER ==
[~2019-03-03] VITALS: Ht 162.6 cm; Wt 81.6 kg
--- NOTE | ~2019-03-03 | H ---
[facility] [place] [address] HISTORY AND PHYSICAL Name: SEAN RANDALL Room #: 249-P ADM IN M.R.#: [id number] Admission: 03/03/19 ������������������ Attend Phys: Valerie Lindquist MD Discharge: ������������������ Date of : 36 Report #: [id number] THIS REPORT FOR: //name// CC: Valerie Ray DATE OF SERVICE: 03/03/2019 CHIEF COMPLAINT: "I have been having difficulty with balance for the past 3 weeks. However, yesterday, left lower extremity initially followed by left upper extremity weakness noted." HISTORY OF PRESENT ILLNESS: The patient is a very pleasant 83-year-old female with a known history of coronary artery disease with a stent and CVA without any residual paresis from before and chronic atrial fibrillation. The patient informs me that she has been on Xarelto and she has been very compliant with her medications. However, 3 weeks ago, she started noticing that she is off balance and has difficulty with her gait; however, she has not fallen in past 3 weeks. Yesterday 4:00 p.m. when she was walking to get sandwich with her grandchildren and family, she felt like she was leaning her body to the left and then she noticed left leg weakness. Last night, however, her left arm started to feel weak and she started to drop things from her left hand, the associate merchandiser was very weak that concerned the patient and today, she continued to feel left-sided weakness and therefore came to the Emergency Room for further evaluation. The patient denies any fever, chills, night sweats, nausea, vomiting, diarrhea, chest pain, palpitations, any dizziness, lightheadedness, weakness of any part of the body up until yesterday, which is mainly in the left side of the upper and left lower extremity. The patient has not had any dysphagia or dyspepsia or difficulty with speech or with any understanding or comprehension at any time. She did not have any syncopal episode. She denies any visual symptoms, blurred vision or either. PAST MEDICAL HISTORY: 1. Coronary artery disease with OH and stents. 2. History of ischemic bowel. 3. Hypertension. 4. Hyperlipidemia. 5. Continued tobacco dependence and tobacco abuse disorder. 6. Chronic kidney disease stage 3. 7. History of LVH. 8. History of ischemic colitis. ALLERGIES: the patient is allergic to CONTRAST DYE as well as TETANUS VACCINE and TOXOID. PRIMARY CARE PHYSICIAN: Dr. Ray. [address] [address] HISTORY AND PHYSICAL Name: SEAN RANDALL Room #: 249-P [facility].#: [id number] Admission: 03/03/19 ������������������ Attend Phys: Valerie Lindquist MD Discharge: ������������������ Date of : 36 Report #: [id number] BILINGUAL SALES REPRESENTATIVE: Dr. Jensen. CURRENT MEDICATIONS: 1. Amlodipine 10 mg daily. 2. Xarelto 15 mg daily. 3. Torsemide 20 mg daily. 4. BuSpar 5 mg b.i.d. 5. Pravastatin 20 mg daily. 6. Levothyroxine 88 mcg daily. 7. Ranolazine 500 mg p.o. b.i.d. PERSONAL AND SOCIAL HISTORY: The patient smokes 1 pack per day and has absolutely no plan to quit smoking. She informs me that she is 83 years old and she plans to garrison while she is smoking. Code status, she wishes to be DNI and she does want CPR and shock if needed to bring her heart back. Her emergency contact is her daughter, Micki Templeton who is the durable power of immigration attorney as well as her is alive and well, Irwin, but he has Alzheimer's dementia. Micki Templeton can be reached at [phone]. FAMILY HISTORY: The patient has had a mother with stroke and aneurysm; however, lived up to be 85 years and father had hypertension and probable myocardial infarction, the patient is not sure and lived up to be 87 years of age. PAST SURGICAL HISTORY: 1. The patient has had colostomy 2 years ago for ischemic bowel. 2. Cerebral aneurysm repair. 3. Appendectomy at the age of 12 years. 4. Cholecystectomy at the age of 23 years. 5. Coronary stent 10 years ago. REVIEW OF SYSTEMS: Ten point review of system was done and was completely negative for any nausea, vomiting, diarrhea, chest pain, abdominal pain, any palpitations. Denies any dizziness or lightheadedness. Denies any dysuria, hematuria, frequency or urgency. Her stool, she informs me that is always soft; however, she has not noticed any melena or hematochezia. PHYSICAL EXAMINATION: VITAL SIGNS: Temperature 36.4, heart rate 68, respirations 16, blood pressure 121/44, pulse oximetry 94% on room air. GENERAL: Alert and oriented to time, place and person, very pleasant 83-year-old female who appears older than her stated age and has a BMI of 30.9 and is in no acute distress. HEENT: Normocephalic, atraumatic. Pupils equally round and reactive to light. Conjunctivae clear. Sclerae nonicteric. Oropharynx clear. Mucous membranes are moist. Uvula midline. Angle of mouth symmetrical. [address] [address] HISTORY AND PHYSICAL Name: SEAN RANDALL Room #: 249-P [facility] IN ..#: [id number] Admission: 03/03/19 ������������������ Attend Phys: Valerie Lindquist MD Discharge: ������������������ Date of : 37 Report #: [id number] NECK: Supple, no JVD, no lymphadenopathy. HEART: S1, S2 regular without any murmur, S3 or S4. LUNGS: Clear to auscultation bilaterally without any crackles or wheezes. CHEST: Bilaterally symmetrical chest expansion noted. ABDOMEN: Soft, nontender, nondistended. Normoactive bowel sounds. EXTREMITIES: No edema both lower extremities. NEUROLOGIC: Completely nonfocal. The patient has an NIH scale is completely normal and a minimal weakness in the left hand grasp noted, but otherwise no abnormality noted. Gait was not tested. RADIOLOGY: CT scan showed a metallic density at the tip of the basilar artery suggesting previous embolism, now with basilar tip artery aneurysm. There is diffuse mild to moderate cerebral atrophy and underlying chronic ischemic disease, but no acute changes and sinuses are clear. 1. Chest x-ray indicates a normal heart size and pulmonary vasculature and no acute process noted. 3. Electrocardiogram notes low voltage with a sinus bradycardia and otherwise no abnormality. Previously noted prolonged QT interval is not present anymore. ASSESSMENT AND PLAN: 1. Transient ischemic attack and stroke. The patient is already on Xarelto and we will go ahead and give aspirin 81 mg daily. As the patient had left-sided weakness, the patient would be a good candidate for a CT angiogram; however, because of her underlying chronic kidney disease, we will hold off and will wait for the Neurology consult tomorrow morning. The patient cannot get MRI because of the clip she has for aneurysm repair in brain, not sure if it is compatible with MRI or not. We will go ahead and give aspirin 81 mg daily. 2. Neurology consult has been entered. 3. We will go ahead and allow permissive hypertension with a blood pressure above 160 mmHg. 4. Resume pravastatin. 5. Hypertension. We will go ahead and resume her amlodipine and losartan tomorrow morning after 24 hours of symptoms have gone by for permissive hypertension with transient ischemic attack. 6. Chronic anticoagulation. We will resume Xarelto for her chronic paroxysmal atrial fibrillation. 7. Paroxysmal atrial fibrillation. The patient is currently in normal sinus rhythm with a heart rate ranging anywhere between 58 and 68. We will go ahead and continue home medications and will not add any beta romy. 8. Coronary artery disease with a stent. The patient is on ranolazine 500 mg b.i.d. as well as Xarelto. I would go ahead and resume her home medications from tomorrow. Plan of care was discussed with the patient in detail and a DNI order has been written and we will do neurological check for a TIA and a Neurology consult and a PT, OT and speech. 9. The patient should be on telemetry and echocardiogram for TIA, stroke workup. The patient has had a transthoracic echocardiogram done on 01/30/2018, [address] [address] HISTORY AND PHYSICAL Name: SEAN RANDALL Room #: 249-P [facility] IN M.R.#: [id number] Admission: 03/03/19 ������������������ Attend Phys: Valerie Lindquist MD Discharge: ������������������ Date of : 36 Report #: [id number] which basically indicated normal LV function, concentric mild LVH with a normal ejection fraction 55% to 60% with grade 1 diastolic dysfunction and the patient did not have any other abnormalities. However, we will go ahead and order echo for TIA, stroke workup and evaluation for any ASD. 11. DVT prophylaxis, the patient is already on Xarelto. 12. Gastrointestinal prophylaxis, Pepcid. LABORATORY DATA: UA, pH 6.0, specific gravity of 1.015, otherwise negative. Trace leukocyte esterase is noted, nitrite is negative and no pyuria noted. Hematology indicates WBC 5.7, hemoglobin 13.6, hematocrit 41.4, platelet count 205. Segmented neutrophils 53.1 and there is slight monocytosis and eosinophil elevation noted. PT 11.6, INR 1.1, PTT 25.7. Chemistries indicate sodium 138, potassium 4.0, chloride 103, bicarbonate 23, anion gap 12, BUN 28, creatinine 1.7, estimated GFR 29, glucose 124, calcium 9.2, total bilirubin 0.3, AST 17, ALT 17, alkaline phosphatase 54. Troponin I was 0.24 at the time of admission: however, the patient has had chronic elevation of troponin for a long time according to the chart review. The patient is completely asymptomatic for any chest pain, chest pressure or CHF symptoms or signs. Total protein 7.4, albumin 3.8. ��������������������������������������������� ���������������������������������������� By: ��������������������������������������������� 2237 0014 Valerie Lindquist MD /nt
[2019-03-03 16:05] VITALS: BP 121/44
[2019-03-03 16:30] LABS: ABSOLUTE NEUTROPHILS 3.1 thou/uL (1.4-8.2); BASOPHILS 0.7 % (0.0-2.0); EOSINOPHILS 3.7 % (0.0-3.0); HEMATOCRIT 41.3 % (37.0-47.0); HEMOGLOBIN 13.6 gm/dL (12.0-15.0); LYMPHOCYTES 31.9 % (24.0-44.0); MCH 33.1 pg (26.0-34.0); MCV 100.4 fL (80.0-100.0); MONOCYTES 9.8 % (1.0-8.0); PLATELET COUNT 205 thou/uL (150-400); POLYS 53.9 % (36.0-66.0); RBC 4.12 mil/uL (4.20-5.00); RDW 16.3 % (10.5-14.5); WBC 5.7 thou/uL (4.0-11.0)
[2019-03-03 16:39] LABS: CALCIUM 9.2 mg/dL (8.5-10.1); CREATININE 1.7 mg/dL (0.6-1.0)
[2019-03-03 16:42] LABS: APTT 25.7 Seconds (24.5-32.8); INR 1.1; PROTIME 11.6 Seconds (9.3-11.4)
[2019-03-03 16:49] LABS: ALBUMIN 3.8 g/dL (3.4-5.0); TOTAL BILIRUBIN 0.3 mg/dL (<0.1-1.0); TOTAL PROTEIN 7.4 g/dL (6.4-8.2); TROPONIN-I 0.24 ng/mL (<0.06)
[2019-03-03 17:44] LABS: URINE BILIRUBIN NEGATIVE (Negative); URINE BLOOD NEGATIVE (Negative); URINE CLARITY CLEAR; URINE COLOR YELLOW; URINE GLUCOSE-RANDOM* NEGATIVE (Negative); URINE KETONES NEGATIVE (Negative); URINE LEUKOCYTES TRACE (Negative); URINE NITRITE NEGATIVE (Negative); URINE PROTEIN (DIPSTICK) NEGATIVE (Negative); URINE SPECIFIC GRAVITY 1.015 (1.005-1.035); URINE UROBILINOGEN 0.2 E.U./dl (0.2-1.0)
[2019-03-03] MEDS ORDERED: AMLODIPINE BESY10 MG PO (18:34)
[2019-03-03] MEDS ORDERED: MELATONIN3 M2 PO (18:35)
[2019-03-03] MEDS ORDERED: DEMADEX20 MG PO (18:37)
[2019-03-03] MEDS ORDERED: BUSPIRONE HCL10 MG PO (18:37)
[2019-03-03 20:50] VITALS: BP 144/69
[2019-03-04 04:00] VITALS: BP 144/69
[2019-03-04 05:47] LABS: HEMATOCRIT 39.7 % (37.0-47.0); HEMOGLOBIN 13.5 gm/dL (12.0-15.0); MCH 33.2 pg (26.0-34.0); MCHC 34.2 g/dL (28.0-37.0); MCV 97.1 fL (80.0-100.0); RBC 4.09 mil/uL (4.20-5.00); RDW 15.7 % (10.5-14.5); WBC 4.9 thou/uL (4.0-11.0)
[2019-03-04 06:16] LABS: CALCIUM 8.9 mg/dL (8.5-10.1); CREATININE 1.1 mg/dL (0.6-1.0); MAGNESIUM 2.3 mg/dL (1.8-2.4); PHOSPHORUS 3.2 mg/dL (2.5-4.9); POTASSIUM 3.7 mmol/L (3.5-5.1)
[2019-03-04 07:33] VITALS: BP 187/63
--- NOTE | 2019-03-04 07:47 | NUR ---
ASSUMED CARE OF PT DURING ADMISSION TO UNIT. A&Ox4, COOPERATIVE. SR/SB ON TELE WITH HR 50-80s. OTHER VS STABLE. LUNG SOUNDS CLEAR. NO WEAKNESS OBSERVED ON EITHER SIDE WHEN UP W/ SBA TO TOLIET AND WHEN PT CHANGED HER COLOSTOMY BAG. ABLE TO REST OVER NOC. REQUESTING BREAKFAST SOON. PROGRESSING WELL TOWARDS POC GOALS.
--- NOTE | 2019-03-04 08:02 | EKG ---
[place] [address] [facility] [place] [address] ELECTROCARDIOGRAM REPORT Name: SEAN RANDALL Room #: 249-P ADM IN M.R.#: [id number] ������������������ Admission: 03/03/19 ������������������ Attend Phys: Valerie Lindquist MD Discharge: ������������������ Date of : 36 Report #: [id number] ����������������������������������������������������������������� [id number] THIS REPORT FOR: //name// [facility] ED Test Date: 2019-03-03 Test Time: 16:20:29 Pat Name: SEAN RANDALL Department: Room: 249 Gender: F Sole Cutter: RADHA : 1935 Requested By: Manuel Quach Order Number: [id number] MD: Parth Wilder Measurements Intervals [place] Rate: 61 P: 54 MD: 163 QRS: 37 QRSD: 107 T: 103 QT: 466 QTc: 470 Interpretive Statements Sinus rhythm Nonspecific ST and T wave abnormality Compared to ECG 09/16/2017 23:48:02 Prolonged QT interval no longer present Electronically Signed On 03-04-2019 8:02:15 CDT by Parth Wilder [email or web address] ��������������������������������������������� <ELECTRONICALLY SIGNED> ���������������������������������������� By: Parth Wilder MD, [facility] ��������������������������������������������� 03/04/19 0802 1620 1620 Parth Wilder MD, [facility] /EPI
--- NOTE | 2019-03-04 10:16 | 2DMMODE ---
[facility] [place] [address] 2 D/M-MODE ECHOCARDIOGRAM Name: SEAN RANDALL Room #: 249-P ADM IN M.R.#: [id number] ������������� Admission: 03/03/19 ������������� Attend Phys: Valerie Lindquist, Discharge: ��� ������������� ��� Date of : 37 Date of Service: 03/04/19 1016 �� Report #: [id number] �������� ��������������������������������������������[id number] THIS REPORT FOR: //name// APPROVED REPORT Study performed: 03/04/2019 09:31:41 EXAM: Comprehensive 2D, Doppler, and color-flow Echocardiogram Patient Location: ICU Room #: 249 Status: routine BSA: 1.87 HR: 52 bpm BP: 144/69 mmHg Rhythm: NSR Other Information Study Quality: Adequate Indications CVA/TIA CAD Hx: PR, stent, Afib, HTN, HLP, TIA. Echo Enhancing Agent Indication: Rule out Shunt Agent(s) / Amount(s) Used: Agitated Saline 6 cc 2D Dimensions RVDd: 24.26 mm IVSd: 12.96 (7-11mm) LVOT Diam: 20.27 (18-24mm) LVDd: 54.67 mm PWd: 12.24 (7-11mm) Ascending Ao: 32.75 (22-36mm) LVDs: 35.93 (25-40mm) Aortic Root: 35.19 mm Volumes Left Atrial Volume (Systole) Single Plane 4CH: 54.89 mL Single Plane 2CH: 44.46 mL LA ESV Index: 28.00 mL/m2 Aortic Valve AoV Peak Emir.: 1.26 m/s AO Peak Gr.: 6.33 mmHg LVOT Max P.74 mmHg LVOT Max V: 1.09 m/s [facility] [address] [place] [address] 2 D/M-MODE ECHOCARDIOGRAM Name: SEAN RANDALL Room #: 249-P [facility] IN .R.#: [id number] ������������� Admission: 03/03/19 ������������� Attend Phys: Valerie Lindquist, Discharge: ��� ������������� ��� Date of : 37 Date of Service: 03/04/19 1016 �� Report #: [id number] �������� ��������������������������������������������[id number] SHARI Vmax: 2.79 cm2 Mitral Valve E/A Ratio: 0.6 MV Decel. Time: 343.60 ms MV E Max Emir.: 0.62 m/s MV A Eimr.: 1.08 m/s MV PHT: 99.64 ms IVRT: 138.41 ms Pulmonary Valve PV Peak Emir.: 0.92 m/s PV Peak Gr.: 3.40 mmHg Pulmonary Vein P Vein S: 0.58 m/s P Vein A: 0.33 m/s P Vein D: 0.31 m/s P Vein A Dur.: 120.0 msec P Vein S/D Ratio: 1.87 Tricuspid Valve TR Peak Emir.: 2.08 m/s TR Peak Gr.: 17.27 mmHg Left Ventricle The left ventricle is normal size. There is normal LV segmental wall motion. Mild concentric left ventricular hypertrophy. Left ventricular systolic function is normal. LVEF is 60-65%. Mild diastolic dysfunction Right Ventricle The right ventricle is normal size. The right ventricular systolic function is normal. Atria The left atrium size is normal. No shunting noted by contrast bubble injection. The right atrium size is normal. Aortic Valve The aortic valve is mildly calcified. No aortic regurgitation is present. There is no aortic valvular stenosis. Mitral Valve Mild mitral annular calcification No mitral regurgitation. No evidence of mitral valve stenosis. Tricuspid Valve The tricuspid valve is normal in structure. Trace tricuspid [facility] [address] [place] [address] 2 D/M-MODE ECHOCARDIOGRAM Name: SEAN RANDALL Room #: 249-P [facility] IN M.R.#: [id number] ������������� Admission: 03/03/19 ������������� Attend Phys: Valerie Lindquist, Discharge: ��� ������������� ��� Date of : 37 Date of Service: 03/04/19 1016 �� Report #: [id number] �������� ��������������������������������������������[id number] regurgitation. Estimated PAP is 17mmHg plus the right atrial pressure. Pulmonic Valve Pulmonic valve is not well visualized. Great Vessels The aortic root is normal in size. The ascending aorta is normal in size. IVC is normal in size and collapses >50% with inspiration. Pericardium There is no pericardial effusion. <Conclusion> Left ventricular systolic function is normal. There is normal LV segmental wall motion. LVEF is 60-65%. Mild diastolic dysfunction No shunting noted by contrast bubble injection. The aortic valve is mildly calcified. No aortic regurgitation or stenosis Mild mitral annular calcification. No mitral regurgitation. Pulmonary artery systolic pressure could not be reliably ascertained. There is no pericardial effusion. ��������������������������������������������� <ELECTRONICALLY SIGNED> ���������������������������������������� By: Parth Wilder MD, FACC ��������������������������������������������� 03/04/19 1016 [id number] Parth Wilder MD, FACC /INF
[2019-03-04 13:07] VITALS: BP 155/45
--- NOTE | 2019-03-04 17:56 | NUR ---
Chart reviewed and case discussed with the care team. Pt admitted due to weakness/TIA. 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 Pt's dtr is helping while the pt is here in the hospital. Pt to have MRI in the am and then likely dc to home. No cm interventions indicated at this time. Pt is indep with gait and adl's. She is familiar with both hh and SNF after a surgery last year. Will remain available should dc needs arise.
--- NOTE | 2019-03-04 18:10 | NUR ---
CONTINUED NEURO WORKUP. DENIES ANY PERSISTENT NEUROLOGICAL SYMPTOMS. NEURO FOLLOWING. MRI UNABLE TO BE PERFORMED DUE TO HX ANEURSYM CLIP WO INFORMATION CARD. ECHO, CAROTID US COMPLETED. PT/OT FOLLOWING. VSS, SEE FLOWSHEET. SYS BP GOAL <140 PER ATTENDING. TOLERATING FOODS AND FLUIDS. VOIDING WITHOUT DIFFICULTY. CONTINUED PROGRESSION TOWARDS CURRENT PLAN OF CARE GOALS. NO ACUTE EVENTS TO REPORT. ANTICIPATED A.M. DISCHARGE PER ATTENDING. PATIENT EAGER TO RETURN HOME TO WHO NEEDS ADDITIONAL CARES.
[2019-03-04 19:12] VITALS: BP 155/45
[2019-03-04 20:26] VITALS: BP 156/57
[2019-03-05] VITALS (7 sets, daily range): BP systolic 116–178; BP diastolic 53–73
--- NOTE | 2019-03-05 03:56 | NUR ---
PT RESTING IN BED, WITH NO COMLAINTS TONIGHT. PT REMAINS ON RA. SR/SB MID 40s AT TIMES ON THE MONITOR BUT ASYMPTOMATIC WITH. PT HAS NOT REQUIRED ANY PAIN MEDS DURING MY SHIFT.
--- NOTE | 2019-03-05 15:33 | NUR ---
ASSUMED CARE OF PT AT 0700 THIS SHIFT. PT HAS BEEN COOPERATIVE, HAS DENIED ANY PAIN THIS SHIFT. PT HAS STILL HAD NUMBNESS IN HER LEFT HAND, SPECIFICALLY FINE MOTOR REFLEXES. PT IS FEELING WELL OVERALL HOWEVER, AND IS READY TO GO HOME TODAY. DR GUTIERREZ IS AWARE. PT IS CURRENTLY RESTING COMFORTABLY IN ROOM, ASSESSMENTS ARE DOCUMENTED. PT HAS NOT HAD VISITORS THIS SHIFT, EDUCATION WAS PROVIDED. PLAN OF CARE IS TO CONTINUE TO MONITOR PT AND DISCHARGE PT HOME THIS SHIFT.
[2019-03-05] MEDS ORDERED: ASPIR 8181 MG PO (16:41)
[2019-03-05] MEDS ORDERED: HYDROCHLOROTH12.5 M1 PO (16:42)
--- NOTE | 2019-03-06 13:40 | NUR ---
FOLLOWUP CALL REC'D FROM THE PT'S DTR, AUREA BOURGEOIS. SHE REPORTS THAT THE PT IS HAVING HIGH BLOOD PRESSURES AND HER LUE WEAKNESS SEEMS WORSE. I ENCOURAGED HER TO TAKE THE PT TO THE NEAREST ER OR CALL HER PCP DR. WATTS TO SEE IF HE COULD SEE HER TODAY. SHE MAY BENEFIT FROM HH VS OUTPT THERAPY.
== END 2019-03-05 17:30 | disposition home health service (06) | DRG 64 ==
LOC: ER 16:03 → EROBS 17:42 → ICU 17:42
PROVIDERS: Emergency Medicine; ADMIT Internal Medicine
DX: I63.9 Cerebral infarction, unspecified (principal); N17.0 Acute kidney failure with tubular necrosis; E78.00 Pure hypercholesterolemia, unspecified; E05.90 Thyrotoxicosis, unspecified without thyrotoxic crisis or storm; I11.0 Hypertensive heart disease with heart failure; I25.10 Atherosclerotic heart disease of native coronary artery without angina pectoris; I48.0 Paroxysmal atrial fibrillation; M47.9 Spondylosis, unspecified; E78.5 Hyperlipidemia, unspecified; N18.3 Chronic kidney disease, stage 3 (moderate); Z93.3 Colostomy status; Z79.01 Long term (current) use of anticoagulants; Z95.5 Presence of coronary angioplasty implant and graft; I25.2 Old myocardial infarction; Z90.49 Acquired absence of other specified parts of digestive tract; Z88.7 Allergy status to serum and vaccine; Z91.041 Radiographic dye allergy status
CPT/HCPCS: 10078; 10203

== ENCOUNTER → 2019-04-15 | Outpatient (CLI) | payer OTHER ==
[~2019-04-15] MED LIST changes: +AMLODIPINE BESY10 MG PO; +ASA81BEC PO; +ASPIR 8181 MG PO; +BENICAR40 MG PO; +BUSPIRONE HCL10 MG PO; +DEMADEX20 MG PO; +HYDROCHLOROTH12.5 M1 PO; +MELATONIN3 M2 PO
== END ==
LOC: NUC 08:11
DX: I25.10 Atherosclerotic heart disease of native coronary artery without angina pectoris (principal); I25.2 Old myocardial infarction; E78.5 Hyperlipidemia, unspecified; I48.91 Unspecified atrial fibrillation; Z87.891 Personal history of nicotine dependence; Z79.899 Other long term (current) drug therapy

== ENCOUNTER → 2019-05-15 | Outpatient (CLI) | payer OTHER ==
[~2019-05-15] VITALS: Ht 162.6 cm; Wt 80.7 kg
[2019-05-15 07:52] LABS: HEMATOCRIT 47.1 % (37.0-47.0); HEMOGLOBIN 15.6 gm/dL (12.0-15.0); MCH 32.4 pg (26.0-34.0); MCHC 33.2 g/dL (28.0-37.0); MCV 97.6 fL (80.0-100.0); RBC 4.83 mil/uL (4.20-5.00); RDW 15.3 % (10.5-14.5); WBC 3.8 thou/uL (4.0-11.0)
[2019-05-15 07:59] VITALS: BP 141/94
[2019-05-15 08:01] LABS: CALCIUM 9.6 mg/dL (8.5-10.1); CREATININE 1.9 mg/dL (0.6-1.0); POTASSIUM 4.3 mmol/L (3.5-5.1)
[2019-05-15 11:25] VITALS: BP 135/52
== END | disposition home or self-care (01) ==
LOC: CATH 07:16
PROVIDERS: Nuclear Medicine Nuclear Cardiology
DX: I65.22 Occlusion and stenosis of left carotid artery (principal); I15.0 Renovascular hypertension; I70.1 Atherosclerosis of renal artery; I73.9 Peripheral vascular disease, unspecified; I10 Essential (primary) hypertension; E78.5 Hyperlipidemia, unspecified; E78.1 Pure hyperglyceridemia; I25.2 Old myocardial infarction; E05.90 Thyrotoxicosis, unspecified without thyrotoxic crisis or storm; F17.210 Nicotine dependence, cigarettes, uncomplicated; Z98.890 Other specified postprocedural states; Z79.899 Other long term (current) drug therapy; Z86.73 Personal history of transient ischemic attack (TIA), and cerebral infarction without residual deficits; Z90.49 Acquired absence of other specified parts of digestive tract; Z98.0 Intestinal bypass and anastomosis status; Z82.49 Family history of ischemic heart disease and other diseases of the circulatory system; Z91.041 Radiographic dye allergy status; Z88.8 Allergy status to other drugs, medicaments and biological substances; Z79.82 Long term (current) use of aspirin

== ENCOUNTER → 2019-07-20 | Outpatient (CLI) | payer OTHER | LOC: SJCVC 15:15 | DX: R94.31 Abnormal electrocardiogram [ECG] [EKG] (principal); I25.10 Atherosclerotic heart disease of native coronary artery without angina pectoris; I48.0 Paroxysmal atrial fibrillation; I10 Essential (primary) hypertension; E78.00 Pure hypercholesterolemia, unspecified; E07.9 Disorder of thyroid, unspecified; J44.9 Chronic obstructive pulmonary disease, unspecified; F17.200 Nicotine dependence, unspecified, uncomplicated; Z90.49 Acquired absence of other specified parts of digestive tract; Z95.5 Presence of coronary angioplasty implant and graft; Z79.899 Other long term (current) drug therapy; Z86.73 Personal history of transient ischemic attack (TIA), and cerebral infarction without residual deficits ==

== ENCOUNTER → 2019-11-26 | Outpatient (CLI) | payer OTHER | LOC: SJCVCIMAG 08:25 | DX: R00.1 Bradycardia, unspecified (principal); I65.23 Occlusion and stenosis of bilateral carotid arteries; I25.10 Atherosclerotic heart disease of native coronary artery without angina pectoris; R06.09 Other forms of dyspnea; R42 Dizziness and giddiness; I10 Essential (primary) hypertension; E78.00 Pure hypercholesterolemia, unspecified; I70.1 Atherosclerosis of renal artery; Z86.73 Personal history of transient ischemic attack (TIA), and cerebral infarction without residual deficits; Z72.0 Tobacco use ==

== ENCOUNTER → 2020-10-18 | Outpatient (CLI) | payer OTHER | LOC: SJCVCIMAG 08:25 | PROVIDERS: ATTEND Nuclear Medicine Nuclear Cardiology | DX: I70.1 Atherosclerosis of renal artery (principal); N26.1 Atrophy of kidney (terminal); I65.23 Occlusion and stenosis of bilateral carotid arteries; I10 Essential (primary) hypertension; I48.0 Paroxysmal atrial fibrillation; E78.00 Pure hypercholesterolemia, unspecified; J44.9 Chronic obstructive pulmonary disease, unspecified; E03.9 Hypothyroidism, unspecified; F41.9 Anxiety disorder, unspecified; F17.210 Nicotine dependence, cigarettes, uncomplicated; Z72.0 Tobacco use; Z98.890 Other specified postprocedural states; Z88.7 Allergy status to serum and vaccine; Z79.899 Other long term (current) drug therapy ==